=== PATIENT | male | born 1985 | race Two or more races ===

== ENCOUNTER 2022-05-16 07:20 | Outpatient (CLI) | payer OTHER | END 2022-05-16 07:28 | disposition home or self-care (01) | LOC: RX STUDY 07:20 | PROVIDERS: ATTEND Colon & Rectal Surgery | DX: K56.5 Intestinal adhesions [bands] with obstruction (postinfection) (principal) ==

== ENCOUNTER 2022-06-14 08:29 | Inpatient (IN) | payer OTHER ==
[~2022-06-14] VITALS: Ht 172.7 cm; Wt 59.0 kg
[2022-06-14] MEDS ORDERED: TRULICITY0.75 MG/0. (13:09)
[2022-06-14] MEDS ORDERED: METFORMIN HCL750 MG PO (13:09)
[2022-06-14] MEDS ORDERED: ZEGERID 40 MG1 EACH PO (13:10)
== END 2022-06-22 11:27 | disposition home or self-care (01) | DRG 330 ==
LOC: O/R 06-19 05:47 → SURH 06-19 09:00 → SURG 06-19 14:55
PROVIDERS: ADMIT Colon & Rectal Surgery; ATTEND Colon & Rectal Surgery
PROC: 0DQ84ZZ Repair Small Intestine, Percutaneous Endoscopic Approach (ICD-10-PCS; 2022-06-19)
PROC: 0DT84ZZ Resection of Small Intestine, Percutaneous Endoscopic Approach (ICD-10-PCS; principal; 2022-06-19 09:00)
DX: K56.50 Intestinal adhesions [bands], unspecified as to partial versus complete obstruction (principal); K91.71 Accidental puncture and laceration of a digestive system organ or structure during a digestive system procedure